=== PATIENT | male | born 2000 | race Caucasian/White ===

== ENCOUNTER 2025-03-18 21:47 | Emergency (ER) | payer OTHER, SELFPAY ==
[2025-03-18 22:03] VITALS: BP 178/104; PULSE 88; RESP 18; TEMP 36.8; O2SAT 100; BMI 28.7
--- NOTE | 2025-03-18 22:07 | DI.RAD.S_ITS ---
PROCEDURE: XR HAND LT MIN 3V INDICATIONS: Evaluate for foreign bodies TECHNIQUE: 3 views of the hand(s) acquired. COMPARISON: None. FINDINGS: Bones: No fractures or dislocations. Carpal bones are normally aligned. No suspicious bony lesions. Soft tissues: No suspicious soft tissue calcifications. No radiodense foreign bodies visualized. IMPRESSION: No acute bony abnormality. No radiodense foreign bodies visualized. Approved by: Gilma Ortez M.D.,Ph.D. on 03/18/2025 at 23:24
[2025-03-18 23:19] VITALS: PULSE 90; O2SAT 98
[2025-03-18 23:22] VITALS: RESP 20; TEMP 37
--- NOTE | 2025-03-19 00:12 | ED.UPPEXIN ---
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 He has not taken anything for the pain or swelling. He is currently on antibiotics but does not know the name of it. His tetanus is up-to-date. Other than what is stated 14 point review of system is negative. Related Data Allergies Allergy/AdvReac Type Severity Reaction Status Date / Time No Known Drug Allergies Allergy Verified 03/18/25 22:03 Review of Systems Review of Systems ROS Unobtainable: All systems reviewed & are unremarkable except as noted in HPI and below Patient History Smoking Status: Current some day smoker Exam Narrative Exam Narrative: GENERAL: [24] year old patient appears stated age. Well-developed patient, in mild distress. HEAD: Atraumatic. Normocephalic. EYES: Pupils equal round and reactive. Extraocular motions intact. No scleral icterus. No injection or drainage. EXTREMITIES: No edema or joint tenderness. Left hand multiple open abrasions cross palm of hand and fingertips, motor sensory intact +2 radial pulse, with full range of motion of all fingertips at all joints and thumb with diffuse soft tissue swelling of the left hand on palmar side BACK: Nontender without deformity or crepitance. No flank tenderness. NEURO: AOx3. SKIN: No rash or erythema of visible areas Initial Vital Signs Initial Vital Signs: Vital Signs Temperature 98.3 F 03/18/25 22:03 Pulse Rate 88 03/18/25 22:03 Respiratory Rate 18 03/18/25 22:03 Blood Pressure 178/104 H 03/18/25 22:03 Pulse Oximetry 100 03/18/25 22:03 Oxygen Delivery Method Room Air 03/18/25 22:03 Course Orders Ordered: ED Orders 03/18/25 22:07 XR hand LT min 3V Stat Vital Signs Vital signs: Vital Signs - 8 hr 03/18/25 22:03 03/18/25 23:19 03/18/25 23:22 Temperature 98.3 F 98.6 F Pulse Rate 88 90 Respiratory Rate 18 20 Blood Pressure 178/104 H Pulse Oximetry 100 98 Oxygen Delivery Method Room Air MDM - Extremity Injury (Upper) Imaging Data Extremity x-ray #1: Radiologist's Impression: OCEDURE: XR HAND LT MIN 3V INDICATIONS: Evaluate for foreign bodies TECHNIQUE: 3 views of the hand(s) acquired. COMPARISON: None. FINDINGS: Bones: No fractures or dislocations. Carpal bones are normally aligned. No suspicious bony lesions. Soft tissues: No suspicious soft tissue calcifications. No radiodense foreign bodies visualized. IMPRESSION: No acute bony abnormality. No radiodense foreign bodies visualized. MDM Narrative Medical decision making narrative: Vital signs, nurse triage note, medication list, previous ER visits, and all imaging studies reviewed. X-ray left hand showed no acute bony abnormality. No radiodense foreign body visualized. Tetanus up-to-date already on antibiotics. Differential diagnosis includes fracture, dislocation, contusion, abrasion, foreign body, cellulitis Discharge Plan Departure Patient Disposition: Home Clinical Impression: Open wound Instructions: DI for Wound Infection Activity Restrictions/Additional Instructions: Return with new or worsening symptoms. Take your antibiotics as previously prescribed. Follow up PCP in 1-2 weeks if no improvement in symptoms. Stand Alone Forms: Patient Portal/API
[2025-03-19 00:28] VITALS: PULSE 85; O2SAT 97
[2025-03-19 00:29] VITALS: BP 143/86; PULSE 83; O2SAT 97
[2025-03-19 00:30] VITALS: PULSE 76; RESP 17; O2SAT 96
== END 2025-03-19 00:35 | disposition home or self-care (01) ==
PROVIDERS: Emergency Provider Family Medicine
DX: S61.402A Unspecified open wound of left hand, initial encounter (principal); W18.30XA Fall on same level, unspecified, initial encounter; Y93.89 Activity, other specified; Y99.0 Civilian activity done for income or pay
CPT/HCPCS: 73130; 99281; 99283